=== PATIENT | male | born 1945 | race Caucasian/White ===

== ENCOUNTER 2021-08-18 11:24 | Emergency (ER) | payer OTHER ==
[~2021-08-18] VITALS: Ht 177.8 cm; Wt 113.4 kg
[2021-08-18] MEDS ORDERED: CEPH500 PO (13:19)
== END 2021-08-18 13:40 | disposition home or self-care (01) ==
LOC: ER 11:24
DX: T81.31XA Disruption of external operation (surgical) wound, not elsewhere classified, initial encounter (principal)
CPT/HCPCS: 99283